=== PATIENT | female | born 1985 ===

== ENCOUNTER 2023-10-08 16:38 | Emergency (ER) | payer OTHER ==
[~2023-10-08] VITALS: Ht 157.5 cm; Wt 54.4 kg
== END 2023-10-08 16:57 | disposition home or self-care (01) ==
LOC: ER 16:38
DX: R00.0 Tachycardia, unspecified (principal); R00.2 Palpitations
CPT/HCPCS: 99284

== ENCOUNTER 2024-03-18 08:39 | Observation (INO) | payer BC, OTHER ==
[~2024-03-18] VITALS: Ht 152.4 cm; Wt 52.0 kg
[~2024-03-18 08:39] MED LIST: ONDA4ODT MM
[2024-03-18 09:33] LABS: BASOPHILS ABSOLUTE AUTO 0.06 K/mm3 (0.00-0.23); BASOPHILS PERCENT AUTO 1 % (0-2); EOSINOPHILS ABSOLUTE AUTO 0.12 K/mm3 (0.00-0.68); EOSINOPHILS PERCENT AUTO 1 % (0-6); Hematocrit 37.8 % (33.0-51.0); Hemoglobin 12.5 g/dL (11.5-16.0); IMMATURE GRAN ABSOLUTE AUTO 0.03 K/mm3 (0.00-0.10); IMMATURE GRAN PERCENT AUTO 0 % (0-1); LYMPHOCYTES ABSOLUTE AUTO 1.91 K/mm3 (0.84-5.20); LYMPHOCYTES PERCENT AUTO 20 % (21-46); MONOCYTES ABSOLUTE AUTO 0.43 K/mm3 (0.16-1.47); MONOCYTES PERCENT AUTO 4 % (4-13); Mean Corpuscular HGB 29.1 pg (26.0-34.0); Mean Corpuscular HGB Conc 33.1 g/dL (31.5-36.5); Mean Corpuscular Volume 88 fL (80-100); Mean Platelet Volume 9.5 fL (9.1-12.4); NEUTROPHILS ABSOLUTE AUTO 7.13 K/mm3 (1.96-9.15); NEUTROPHILS PERCENT AUTO 74 % (41-73); Platelet Count 265 K/mm3 (150-400); RDW Coefficient Variation 12.9 % (11.7-14.2); RDW Standard Deviation 41.1 fL (35.1-46.3); Red Blood Cell Count 4.29 M/mm3 (3.80-5.20); White Blood Cell Count 9.68 K/mm3 (4.00-11.30)
[2024-03-18 10:02] LABS: Albumin, Blood 3.5 g/dL (3.4-5.0); Albumin/Globulin Ratio 0.9 (0.8-1.8); Bilirubin, Total 0.2 mg/dL (0.1-1.0); Bun/Creatinine Ratio 12.4 (12.0-20.0); Calcium, Blood 8.6 mg/dL (8.5-10.1); Creatinine, Blood 0.72 mg/dL (0.40-1.00); Globulin, Blood 3.7 g/dL (2.2-4.0); Potassium, Blood 4.2 mmol/L (3.5-5.5); Total Protein, Blood 7.2 g/dL (6.4-8.2)
[2024-03-18] MEDS ORDERED: Ondansetron HCl 2 MG / ML 2ML Vial IV PRN (12:05)
[2024-03-18] MEDS ORDERED: FLU VACC TS2024-25(6MOS UP)/PF 45 MCG/0.5 ML SYRINGE IM PRN (12:05)
[2024-03-18] MEDS ORDERED: HYDROmorphone HCl/Pf 1MG SYR IV PRN (12:05)
[2024-03-18] MEDS ORDERED: Lactated Ringer's 1,000 ML IV SCH (12:10)
[2024-03-18] MEDS ORDERED: CefOXitin Sodium 1,000 MG in NS 50 ML IV SCH (12:30)
[2024-03-18] MEDS ORDERED: Indocyanine Green 25 MG Vial IV ONE (13:00)
[2024-03-18 13:49] VITALS: BP 121/75
[2024-03-18] MEDS ORDERED: PANT20 PO (13:49)
--- NOTE | 2024-03-18 13:58 | NUR ---
ARRIVAL TO UNIT AFTER RECEIVING REPORT FROM ED RN, PATIENT TRANSFERRED TO UNIT VIA WHEELCHAIR AT APPROX 1340. PATIENT ABLE TO STAND AND TRANSFER WITHOUT ASSISTANCE FROM STAFF - CHANGED INTO HOSPITAL GOWN. VSS. AWAITING LAP JG - DENIES ABD PAIN, N/V. ABD TENDER, HYPOACTIVE BOWEL TONES. NPO SINCE DRINKING WATER THIS MORNING, AROUND 0730. LR INFUSING PER EMAR. CALL LIGHT IN REACH.
--- NOTE | 2024-03-18 16:47 | NUR ---
SHIFT SUMMARY NO ACUTE CHANGES SINCE ARRIVAL TO UNIT. MD HELLER AT BEDSIDE THIS AFTERNOON - NOW NPO AT MIDNIGHT FOR LAP JG TOMORROW. CLEAR LIQUID DIET ORDERED - PATIENT TOLERATING DIET. DENIES PAIN @ THIS TIME. LR INFUSING PER EMAR. INDEPENDENT IN ROOM - COMMUNICATES NEEDS EFFECTIVELY. CALL LIGHT IN REACH. WILL CONTINUE TO MONITOR AND REPORT TO ONCOMING RN.
[2024-03-18 19:47] VITALS: BP 100/64
--- NOTE | 2024-03-18 23:30 | NUR ---
CHEST PRESSURE AROUND 2240, PT BEGAN COMPLAINING OF CHEST PRESSURE. HE STATES THAT IT WASNT PAIN BUT JUST PRESSURE. PT ALSO REPORTED SOB. VITALS OBTAINED AND WERE STABLE. EKG PEFORMED. SHORTLY AFTER EKG WAS PERFORMED, PT REPORTED THAT CHEST PRESSURE HAD COMPLETELY SUBSIDED, AND REPORTS THAT SOB WAS GONE. PT APPEARED MUCH MORE RELAXED AND WAS RESTING IN BED WITH HOB DOWN. CALL PLACED TO SURGEON CENTRAL STERILIZATION TECHNICIAN AT 2300, RECEIVED CALL BACK AT 2330. NOTIFIED HIM OF PT REPORTS OF CHEST PRESSURE. RECEIVED ORDER FOR HOSPITALIST CONSULT, WILL CALL HOSPITALIST TO NOTIFY.
[2024-03-19] VITALS (16 sets, daily range): BP systolic 98–129; BP diastolic 60–96
--- NOTE | 2024-03-19 05:34 | NUR ---
SHIFT SUMMARY NO ACUTE CHANGES TO REPORT OVERNIGHT. PT HAS RESTED T/O THE NIGHT, SHE HAS BEEN INDEPENDENT IN THE ROOM. PT DENIES PAIN. IVF AND ANTIBIOTICS PER ORDERS. PLAN IS FOR SURGERY TODAY, PT HAS BEEN NPO SINCE MIDNIGHT. BED IN LOWEST POSITION, CALL LIGHT WITHIN REACH.
[2024-03-19] MEDS ORDERED: Indocyanine Green 25 MG Vial IV ONE (06:00)
[2024-03-19] MEDS ORDERED: propofoL 20 ML IV ONE (10:53)
[2024-03-19] MEDS ORDERED: FentaNYL Citrate 50 MCG/ML 2 ML Injection ONE ×3 (10:54→13:20)
[2024-03-19] MEDS ORDERED: Lactated Ringer's 1,000 ML IV ONE (11:16)
[2024-03-19] MEDS ORDERED: Bupivacaine 0.5% HCl 5 MG/ML 30MLVIAL ONE (11:49)
[2024-03-19] MEDS ORDERED: Rocuronium Bromide 10 MG/ML 5ML Injection IV ONE (12:19)
[2024-03-19] MEDS ORDERED: Sugammadex Sodium 200 MG/2ML SDV (100 MG/ML) ONE (12:44)
[2024-03-19] MEDS ORDERED: Ondansetron HCl 2 MG / ML 2ML Vial ONE (13:27)
[2024-03-19] MEDS ORDERED: Ketorolac Tromethamine 15mg Vial IV PRN (15:50)
--- NOTE | 2024-03-19 17:41 | NUR ---
DISCHARGE NOTE: PT EATING/VOIDING AND AMBULATING. PAIN MANAGED WITH TORADOL. PT EDUCATED ON WOUND INSTRUCTIONS. DAUGHTER WAS AT BEDSIDE DURING DISCHARGE EDUCATION. PT ESCORTED TO MAIN ENTERANCE AT 1715 WAITING ON RIDE ASSISTANCE. NO QUESTIONS OR CONCERNS AT TIME OF DISCHARGE.
== END 2024-03-19 17:26 | disposition home or self-care (01) ==
LOC: ER 08:39 → SURS 08:40
PROVIDERS: Student in an Organized Health Care Education/Training Program; ADMIT Surgery
PROC: 8E0W4CZ Robotic Assisted Procedure of Trunk Region, Percutaneous Endoscopic Approach (ICD-10-PCS; principal; 2024-03-19 11:30)
PROC: 0FT44ZZ Resection of Gallbladder, Percutaneous Endoscopic Approach (ICD-10-PCS; principal; 2024-03-19 11:30)
DX: K80.10 Calculus of gallbladder with chronic cholecystitis without obstruction (principal); K21.9 Gastro-esophageal reflux disease without esophagitis; K76.0 Fatty (change of) liver, not elsewhere classified
CPT/HCPCS: 76705; 80053; 81025; 83690; 85025; 88304; 96365; 96366; 96376; 99285-25; G0378; J0694; J1885; J2405; J2704; J3010; J7120